=== PATIENT | male | born 1945 | race African-American/Black ===

== ENCOUNTER 2019-09-30 08:42 | Observation (INO) ==
[2019-09-30] MEDS ORDERED: FAMOTIDINE 20 MG TABLET ONE (09:36)
[2019-09-30] MEDS ORDERED: GENTAMICIN 80 MG/2 ML VIAL ONE (09:36)
[2019-09-30] MEDS ORDERED: MEPERIDINE 25 MG/1 ML VIAL ONE (09:36)
[2019-09-30] MEDS ORDERED: MIDAZOLAM 10 MG/2 ML VIAL ONE (09:39)
[2019-09-30] MEDS ORDERED: LIDOCAINE 1% 50 ML VIAL ONE (09:49)
[2019-09-30 12:52] LABS: Basophils # 0.1 10*3/uL (0.0-0.2); Basophils % 0.9 % (0.0-0.8); Eosinophils # 0.1 10*3/uL (0.0-0.87); Eosinophils % 1.3 % (0.00-10.9); Hematocrit 30.8 VOL% (42.0-52.0); Hemoglobin 10.1 GM/DL (14.0-18.0); Immature Granulocytes % 0.3 %; Immature Granulocytes Absolute 0.02 #; Lymphocytes # 3.3 10*3/uL (1.4-4.0); Lymphocytes % 49.6 % (21.2-54.2); Mean Corpuscular HGB Conc 32.8 GM/DL (32-36); Mean Corpuscular Volume 94.8 FL (87-102); Mean Platelet Volume 9.9 FL (9.6-12.0); Monocytes % 7.9 % (1.7-12.7); Platelet Count 226 T/CUMM (130-400); Red Blood Count 3.25 MC/CUMM (3.8-5.5); Red Cell Distribution Width 13.2 % (9.3-17.3); White Blood Count 6.7 T/CUMM (4-12)
[2019-09-30] MEDS ORDERED: ACETAMINOPHEN 325 MG TABLET PO PRN (13:01)
[2019-09-30] MEDS ORDERED: PROMETHAZINE 25 MG/1 ML VIAL IM PRN (13:01)
[2019-09-30] MEDS ORDERED: ONDANSETRON 4 MG/2 ML VIAL IV PRN (13:01)
[2019-09-30 13:13] LABS: Albumin 2.4 G/DL (3.4-5.0); Bilirubin,Total 0.4 MG/DL (0.2-1.0); Calcium 7.8 MG/DL (8.5-10.1); Osmolality,Calculated 275.7 MOS/KG (273-304); Total Protein 4.7 G/DL (6.4-8.3)
[2019-09-30] MEDS ORDERED: cefTRIAXone 1,000 MG in SYRINGE 1 EACH IV SCH (16:00)
[2019-09-30] MEDS: SODIUM CHLORIDE 0.9% 1,000 ML IV SCH (16:39)
[2019-09-30] MEDS ORDERED: traZODone 50 MG TABLET PO SCH (21:00)
[2019-10-01] MEDS: SODIUM CHLORIDE 0.9% 1,000 ML IV SCH ×2 (00:58→07:32)
[2019-10-01 05:28] LABS: Basophils % 0.3 % (0.0-0.8); Eosinophils # 0.1 10*3/uL (0.0-0.87); Eosinophils % 0.6 % (0.00-10.9); Hematocrit 22.7 VOL% (42.0-52.0); Hemoglobin 7.9 GM/DL (14.0-18.0); Immature Granulocytes % 0.7 %; Immature Granulocytes Absolute 0.08 #; Lymphocytes # 1.3 10*3/uL (1.4-4.0); Lymphocytes % 10.8 % (21.2-54.2); Mean Corpuscular HGB Conc 34.8 GM/DL (32-36); Mean Corpuscular Volume 91.5 FL (87-102); Monocytes % 4.8 % (1.7-12.7); Neutrophils % 82.8 % (38.7-73.9); Platelet Count 177 T/CUMM (130-400); Red Blood Count 2.48 MC/CUMM (3.8-5.5); White Blood Count 11.6 T/CUMM (4-12)
[2019-10-01 05:57] LABS: Calcium 7.6 MG/DL (8.5-10.1); Osmolality,Calculated 273.8 MOS/KG (273-304)
[2019-10-01] MEDS ORDERED: SODIUM CHLORIDE 0.9% 1,000 ML IV PRN (07:48)
[2019-10-01] MEDS ORDERED: CIPROFLOXACIN 500 MG TABLET PO ONE (08:00)
[2019-10-01] MEDS ORDERED: PANTOPRAZOLE 40 MG TABLET PO SCH (09:00)
[2019-10-01] MEDS ORDERED: amLODIPine 10 MG TABLET PO SCH (09:00)
[2019-10-01 10:05] LABS: Hematocrit 26.5 VOL% (42.0-52.0); Hemoglobin 9.1 GM/DL (14.0-18.0)
[2019-10-01 10:29] VITALS: BP 112/61
== END 2019-10-01 11:19 | disposition home or self-care (01) ==
LOC: N.5E 08:42 → N.ULTRA 08:42
PROVIDERS: ADMIT Student in an Organized Health Care Education/Training Program; ATTEND Student in an Organized Health Care Education/Training Program